=== PATIENT | female | born 1990 | race Caucasian/White ===

== ENCOUNTER 2017-01-30 17:04 | Outpatient (CLI) ==
[2016-10-22 17:58] VITALS: BMI 20.5
[2017-01-30 17:19] LABS: BILIRUBIN,URINE Negative (NEGATIVE); KETONES,URINE Negative (NEGATIVE); LEUKOCYTE ESTERASE ,URINE Trace (NEGATIVE); NITRITE,URINE Positive (NEGATIVE); PROTEIN,URINE Negative (NEGATIVE); URINE, BLOOD 2+ (NEGATIVE)
[2017-01-30 17:36] LABS: ADD URINE MICROSCOPIC YES
[2017-01-30 17:37] LABS: BACTERIA,URINE 2+ (NOT PRESENT)
== END 2017-01-30 17:05 | disposition home or self-care (01) ==
LOC: LAB 17:04
PROVIDERS: ATTEND Nurse Practitioner Family
DX: N39.0 Urinary tract infection, site not specified (principal)
CPT/HCPCS: 81001; 87086; 87186

== ENCOUNTER 2017-02-07 15:13 | Outpatient (CLI) ==
[2016-10-22 17:58] VITALS: BMI 20.5
[2017-02-07 16:14] LABS: BASOPHILS # (AUTO) 0.1 K/uL (0-0.2); BASOPHILS % (AUTO) 0.9 % (0.0-3.0); EOSINOPHILS # (AUTO) 0.3 K/ul (0.0-0.7); EOSINOPHILS % (AUTO) 4.1 % (0.0-7.0); HEMATOCRIT 40.3 % (37.0-47.0); HEMOGLOBIN 13.8 g/dl (12.0-16.0); IMMATURE GRANULOCYTE % (AUTO) 0.3 % (0.0-5.0); LYMPHOCYTES # (AUTO) 2.3 K/uL (0.60-3.4); LYMPHOCYTES % (AUTO) 33.8 (10.0-50.0); MEAN CORPUSCULAR HEMOGLOBIN 29.7 pg (27.0-31.0); MEAN CORPUSCULAR HGB CONC 34.2 (31.8-35.4); MEAN CORPUSCULAR VOLUME 86.7 fl (81.0-99.0); MONOCYTES # (AUTO) 0.4 K/uL (0.4-2.0); MONOCYTES % (AUTO) 5.6 (0-10); NEUTROPHILS # (AUTO) 3.8 K/ul (2.0-6.9); NEUTROPHILS % (AUTO) 55.3; PLATELET COUNT 264 10^3/uL (140-440); RED BLOOD COUNT 4.65 10^6/ul (4.20-5.40); WHITE BLOOD COUNT 6.81 K/ul (4.6-10.2)
[2017-02-07 16:29] LABS: BILIRUBIN,URINE Negative (NEGATIVE); KETONES,URINE Negative (NEGATIVE); LEUKOCYTE ESTERASE ,URINE Negative (NEGATIVE); NITRITE,URINE Negative (NEGATIVE); PH,URINE 5.5 (5-9); PROTEIN,URINE Negative (NEGATIVE); URINE, BLOOD Negative (NEGATIVE)
[2017-02-07 16:38] LABS: ADD URINE MICROSCOPIC NO
[2017-02-07 16:49] LABS: ALBUMIN/GLOBULIN RATIO 1.21; ANION GAP 12.9; BILIRUBIN,TOTAL 0.35 mg/dL (0.00-1.20); BUN/CREATININE RATIO 14.47; CHOL/HDL RATIO 2.8 (4.5-5.5); CREATININE 0.76 mg/dL (0.60-1.30); POTASSIUM 3.9 mmol/L (3.5-5.10); TOTAL PROTEIN 7.3 g/dL (6.4-8.2)
== END 2017-02-07 15:14 | disposition home or self-care (01) ==
LOC: LAB 15:13
PROVIDERS: ATTEND Nurse Practitioner Family
DX: G11.9 Hereditary ataxia, unspecified (principal); G89.4 Chronic pain syndrome; Z87.440 Personal history of urinary (tract) infections
CPT/HCPCS: 36415; 80053; 80061; 81001; 84439; 84443; 85025

== ENCOUNTER 2018-04-15 15:19 | Outpatient (CLI) ==
[2016-10-22 17:58] VITALS: BMI 20.5
== END 2018-04-15 15:20 | disposition home or self-care (01) ==
LOC: LAB 15:19
PROVIDERS: ATTEND Nurse Practitioner Family
DX: G89.4 Chronic pain syndrome (principal); Z79.899 Other long term (current) drug therapy
CPT/HCPCS: 36415; 80053; 80061; 81001; 85025

== ENCOUNTER 2018-07-19 11:15 | Emergency (ER) ==
[2018-07-19 11:19] VITALS: BP 123/84; TEMP 97; BMI 21.1
--- NOTE | 2018-07-19 12:02 | ED.PDOC ---
General ED Provider: Dr. MARKO KNUTSON Chief Complaint: Urinary Problem Stated Complaint: reports urine that is smelling and that she is not going enough Time Seen by Physician: 11:20 Mode of Arrival: Walk-In Information Source: Patient Exam Limitations: No limitations Primary Care Provider: [facility] Nursing and Triage Documentation Reviewed and Agree: Yes Does patient meet sepsis criteria?: No System Inflammatory Response Syndrome: Not Applicable Sepsis Protocol: For patient's 13 years and over: Temp is 96.8 and below OR 101 and greater Pulse >90 BPM Resp >20/minute Acutely Altered Mental Status Are patient's symptoms suggestive of a new infection, such as: -Pneumonia -Skin, Soft Tissue -Endocarditis -UTI -Bone, Joint Infection -Implantable Device -Acute Abdominal Infection -Wound Infection -Meningitis -Blood Stream Catheter Infection -Unknown Review of Systems - Review Of Systems Constitutional: Reports: No symptoms Eyes: Reports: No symptoms Ears, Nose, Mouth, Throat: Reports: No symptoms Respiratory: Reports: No symptoms Cardiac: Reports: No symptoms GI: Reports: No symptoms : Reports: Other (not urinating enough ) Musculoskeletal: Reports: No symptoms Skin: Reports: No symptoms Neurological: Reports: No symptoms Endocrine: Reports: No symptoms Hematologic/Lymphatic: Reports: No symptoms All Other Systems: Reviewed and Negative Past Medical History - Past Medical History Previously Healthy: Yes Endocrine: Reports: None Cardiovascular: Reports: None Respiratory: Reports: None Hematological: Reports: None Gastrointestinal: Reports: None, Other (C Diff ) Genitourinary: Reports: None 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, Other (Ataxia ) Musculoskeletal: Reports: None 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) Last Menstrual Period: 818 - Surgical History General Surgical History: Reports: Tubal ligation, - Family History Family History: Reports: Other (Ataxia) - Social History Smoking Status: Current every day smoker Hx Substance Use: No Alcohol Screening: None - Immunizations Tetanus Shot up to Date: Yes Physical Exam - Physical Exam Appearance: Well-appearing, No pain distress, Well-nourished Eyes: WILLIAM, EOMI, Conjunctiva clear ENT: Ears normal, Nose normal, Oropharynx normal Respiratory: Airway patent, Breath sounds clear, Breath sounds equal, Respirations nonlabored Cardiovascular: RRR, Pulses normal, No rub, No murmur GI/: Soft, Nontender, No masses, Bowel sounds normal, No Organomegaly Musculoskeletal: Normal strength, ROM intact, No edema, No calf tenderness Skin: Warm, Dry, Normal color Neurological: Sensation intact, Motor intact, Reflexes intact, Cranial nerves intact, Alert, Oriented Psychiatric: Affect appropriate, Mood appropriate Critical Care Note - Critical Care Note Total Time (mins): 0 Course - Course Orders, Labs, Meds: Lab Review 07/19/18 11:30 Urine Color Yellow Urine Clarity Clear Urine pH 5.5 Ur Specific [place] 1.025 Urine Protein Negative Urine Glucose (UA) Negative Urine Ketones Negative Urine Blood Trace-lysed Urine Nitrite Negative Urine Bilirubin Negative Urine Urobilinogen 0.2 Ur Leukocyte Esterase 1+ Urine Microscopic RBC 0-2 Urine Microscopic WBC 20-30 Ur Squamous Epith Cells 5-10 Urine Bacteria 2+ Urine Mucus 3+ Orders Category Date Time Status URINALYSIS C & S IF INDICATED Stat LAB 07/19/18 11:30 Completed URINE CULTURE Stat LAB 07/19/18 11:30 Received Vital Signs: Temp Pulse Resp BP Pulse Ox 07/19/18 11:16 97.0 F L 90 18 123/84 99 Departure - Departure Time of Disposition: 12:01 Disposition: HOME SELF-CARE Discharge Problem: Urinary tract infectious disease Instructions: Urinary Tract Infection in Women (ED) Condition: Stable Pt referred to PMD for follow-up: Yes IPMP verified?: No Additional Instructions: Take Medications as prescribed Push fluids Follow up with PCP in 3 days Prescriptions: Sulfamethoxazole/Trimethoprim [Bactrim Ds 800/160 mg] 1 tab PO Q12HR #10 tablet Allergies/Adverse Reactions: Allergies acetaminophen [From [place]] Allergy (Unknown, Unverified 08/15/17 15:30) hydrocodone bitartrate [From [place]] Allergy (Unknown, Unverified 08/15/17 15:30) morphine Adverse Reaction (Unverified 08/15/17 15:30) Home Medications: Ambulatory Orders Lorazepam [Ativan] 1 mg PO QID 10/24/15 Ibuprofen 200 mg PO PRN 02/07/18 Sulfamethoxazole/Trimethoprim [Bactrim Ds 800/160 mg] 1 tab PO Q12HR #10 tablet 07/19/18 Disposition Discussed With: Patient
== END 2018-07-19 12:11 | disposition home or self-care (01) ==
LOC: ED 11:15
DX: N39.0 Urinary tract infection, site not specified (principal); F17.210 Nicotine dependence, cigarettes, uncomplicated
CPT/HCPCS: 81001; 87086; 87186; 99283

== ENCOUNTER 2018-07-23 08:29 | Emergency (ER) ==
[2018-07-23 08:39] VITALS: BP 147/91; TEMP 97.7; BMI 20.6
[2018-07-23] MEDS ORDERED: TORADOL IM STA (08:45)
[2018-07-23] MEDS ORDERED: OXYCODONE PO STA (08:48)
--- NOTE | 2018-07-23 09:29 | ED.PDOC ---
General ED Provider: Dr. MICAH SALES Chief Complaint: Chest Wall Injury/Pain Stated Complaint: chest wall injury fall Time Seen by Physician: 08:33 (fall chest wall pain upper back pain sen with SARIKA THOMAS RN) Mode of Arrival: Walk-In Information Source: Patient Exam Limitations: No limitations [facility] Nursing and Triage Documentation Reviewed and Agree: Yes Does patient meet sepsis criteria?: No System Inflammatory Response Syndrome: Not Applicable (NO NECK PAIN) Sepsis Protocol: For patient's 13 years and over: Temp is 96.8 and below OR 101 and greater Pulse >90 BPM Resp >20/minute Acutely Altered Mental Status Are patient's symptoms suggestive of a new infection, such as: -Pneumonia -Skin, Soft Tissue -Endocarditis -UTI -Bone, Joint Infection -Implantable Device -Acute Abdominal Infection -Wound Infection -Meningitis -Blood Stream Catheter Infection -Unknown Trauma/Injury Complaint Exam - Trauma Complaint/Exam Location of Pain or Injury: Reports: Chest, Back (THORACIC). Denies: Head, Scalp, Face, Neck, RUE, LUE, Abdomen, RLE, LLE Mechanism of Injury: Reports: Fall Onset/Duration: 1 HR AGO Symptoms Are: Still present Timing of Treatment: Immediate Initial Severity: Moderate Current Severity: Moderate Character: Reports: Aching Aggravating: Reports: Movement Alleviating: Reports: Rest Associated Signs and Symptoms: Denies: LOC, Confusion, Memory loss, Lethargy, Vomiting, Bleeding, Bruising, Swelling, Extremity disuse, Painful respiration, Hoarseness, Dysphagia, Hemoptysis, Significant blood loss : No Penetrating Injury Risk Factors: Reports: None Related Surgical History: Reports: None Nexus Low Risk Criteria: No post-midline CS tender, No evidence of intoxicat., No Altered LOC, No focal neuro deficit, No distracting injuries Immobilization Removed Post Exam: No Glascow Coma Scale (see protocol): 15 Trauma Findings: Absent: [place] eyes, Hemotympanum, Nasal deformity, Dental tenderness, Dental injury, Neck tenderness, Neck spasm, SubQ Air, Weak pulses, Absent pulses, Abdominal distention Skin Findings: Present: Normal findings Differential Diagnoses: Abrasion (LOWER CHEST RIGHT) Review of Systems - Review Of Systems Constitutional: Reports: No symptoms Eyes: Reports: No symptoms Ears, Nose, Mouth, Throat: Reports: No symptoms Respiratory: Reports: No symptoms Cardiac: Reports: No symptoms GI: Reports: No symptoms : Reports: No symptoms Musculoskeletal: Reports: No symptoms Skin: Reports: No symptoms Neurological: Reports: No symptoms Endocrine: Reports: No symptoms Hematologic/Lymphatic: Reports: No symptoms All Other Systems: Reviewed and Negative Past Medical History - Past Medical History Previously Healthy: Yes Endocrine: Reports: None Cardiovascular: Reports: None Respiratory: Reports: None Hematological: Reports: None Gastrointestinal: Reports: None, Other (C Diff ) Genitourinary: Reports: None 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, Other (Ataxia ) Musculoskeletal: Reports: None 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) Last Menstrual Period: 1 week ago - Surgical History General Surgical History: Reports: Tubal ligation, - Family History Family History: Reports: Other (Ataxia) - Social History Smoking Status: Current every day smoker, Heavy tobacco smoker Hx Substance Use: No Alcohol Screening: None Physical Exam - Physical Exam Appearance: Well-appearing, No pain distress, Well-nourished Eyes: WILLIAM, EOMI, Conjunctiva clear ENT: Ears normal, Nose normal, Oropharynx normal Respiratory: Airway patent, Breath sounds clear, Breath sounds equal, Respirations nonlabored Cardiovascular: RRR, Pulses normal, No rub, No murmur GI/: Soft, Nontender, No masses, Bowel sounds normal, No Organomegaly Musculoskeletal: Normal strength, ROM intact, No edema, No calf tenderness Skin: Warm, Dry (ABRASION RIGHT LOWER CHEST WALL) Neurological: Sensation intact, Motor intact, Reflexes intact, Cranial nerves intact, Alert, Oriented Psychiatric: Affect appropriate, Mood appropriate Interpretation - Radiology Interpretation Radiology Interpretation By: Radiologist Radiology Results: No acute changes Critical Care Note - Critical Care Note Total Time (mins): 0 Course - Course Orders, Labs, Meds: Lab Review 07/23/18 08:55 Serum , Qual Negative Orders Category Date Time Status SERUM Stat LAB 07/23/18 08:55 Completed Ketorolac Tromethamine [Toradol] MEDS 07/23/18 08:45 Discontinued 30 mg IM ONCE STA Oxycodone HCl [Oxycodone] MEDS 07/23/18 08:48 Discontinued 5 mg PO ONCE STA CT CHEST W/O CONTRAST Stat RADS 07/23/18 08:[address] THORACIC SPINE W/O CONTRAST Stat RADS 07/23/18 08:43 Completed Medications Discontinued Medications Generic Name Dose Route Start Last Admin Trade Name Fatemeh PRN Reason Stop Dose Admin Ketorolac Tromethamine 30 mg 07/23/18 08:45 07/23/18 10:30 Toradol IM 07/23/18 08:46 Not Given ONCE STA Oxycodone HCl 5 mg 07/23/18 08:48 07/23/18 09:04 Oxycodone PO 07/23/18 08:49 5 mg ONCE STA Administration Vital Signs: Temp Pulse Resp BP Pulse Ox 07/23/18 08:30 97.7 F 91 H 20 147/91 H 99 Departure - Departure Time of Disposition: 10:00 Disposition: HOME SELF-CARE Discharge Problem: Chest injury Instructions: Chest Wall Pain (ED) Condition: Good Pt referred to PMD for follow-up: Yes IPMP verified?: No Additional Instructions: take pain med from home as instructed-rest at home-make appointment with family md as soon as possible regarding chest cat scan findings Allergies/Adverse Reactions: Allergies hydrocodone bitartrate [From [place]] Allergy (Unknown, Verified 07/23/18 08:39) morphine Adverse Reaction (Verified 07/23/18 08:39) Home Medications: Ambulatory Orders Lorazepam [Ativan] 1 mg PO QID 10/24/15 Ibuprofen 200 mg PO DIRECTED PRN 02/07/18 Sulfamethoxazole/Trimethoprim [Bactrim Ds 800/160 mg] 1 tab PO Q12HR #10 tablet 07/19/18
--- NOTE | 2018-07-23 10:16 | CT ---
EXAM: CT chest without contrast. HISTORY: Right lower rib pain following a fall. Initial presentation. COMPARISON: None available. TECHNIQUE: Multiple axial images of the chest were obtained without intravenous contrast. Images we re reformatted in the sagittal and coronal planes. Three-dimensional reconstructed images were create d on an independent workstation FINDINGS: Evaluation for lymphadenopathy is limited by lack of intravenous contrast. Heart size is normal. No pericardial effusion identified. Normal thymic tissue is present. A 0.3 cm right middle lobe nodule noted on axial image 36 is stable since abdominal CT dated 09/17/20 12. Otherwise, the lungs are clear without pleural effusion or pneumothorax. Polypoid 0.3 cm focus within the right bronchus intermedius on axial image 27 with more linear focus in the anterior lower trachea on axial image 19 noted. Limited images of the upper abdomen are unremarkable. No rib fracture or other acute osseous abnorma lity is identified. IMPRESSION: 1. No acute post-traumatic abnormality of the chest. 2. A 0.3 cm polypoid lesion in the right bronchus intermedius may represent mucus although short-ter m follow-up is recommended to confirm resolution.
--- NOTE | 2018-07-23 10:18 | CT ---
EXAM: CT thoracic spine without contrast. HISTORY: Initial presentation for back injury due to a fall. COMPARISON: None available. TECHNIQUE: Multiple axial images of the thoracic spine were obtained without intravenous contrast. Images were reformatted in the sagittal and coronal planes. FINDINGS: The normal curvature and alignment are maintained. Vertebral body and intervertebral disc heights are normal. No fracture or subluxation is seen. No significant central canal stenosis iden tified. Adjacent soft tissues are unremarkable. A 0.3 cm polypoid lesion noted in the right bronchus intermedius on coronal image 27. There appears to be some more linear mucus in the trachea making t his most likely mucus although polypoid mass not excluded. IMPRESSION: 1. No acute abnormality of the thoracic spine. 2. A 0.3 cm polypoid focus in the right bronchus intermedius which is most likely mucus although fol low-up is recommended to confirm resolution.
== END 2018-07-23 10:45 | disposition home or self-care (01) ==
LOC: ED 08:29
DX: S29.9XXA Unspecified injury of thorax, initial encounter (principal); S20.311A Abrasion of right front wall of thorax, initial encounter; W19.XXXA Unspecified fall, initial encounter; F17.210 Nicotine dependence, cigarettes, uncomplicated
CPT/HCPCS: 36415; 84703; 99283

== ENCOUNTER 2018-09-05 11:53 | Outpatient (CLI) | END 2018-09-05 11:54 | disposition home or self-care (01) | LOC: FCC-LAB 11:53 | PROVIDERS: ATTEND Family Medicine | DX: E55.9 Vitamin D deficiency, unspecified (principal) | CPT/HCPCS: 36415; 82306 ==

== ENCOUNTER 2018-10-10 12:39 | Outpatient (CLI) | END 2018-10-10 12:40 | disposition home or self-care (01) | LOC: FCC-LAB 12:39 | PROVIDERS: ATTEND Family Medicine | DX: R40.0 Somnolence (principal); R26.9 Unspecified abnormalities of gait and mobility; G11.9 Hereditary ataxia, unspecified; R91.1 Solitary pulmonary nodule | CPT/HCPCS: 36415; 82565; 84443; 85025 ==

== ENCOUNTER 2019-02-03 16:43 | Outpatient (CLI) | END 2019-02-03 16:44 | disposition home or self-care (01) | LOC: RHC-LAB 16:43 → FCC-LAB 16:44 | PROVIDERS: ATTEND Family Medicine | DX: Z51.81 Encounter for therapeutic drug level monitoring (principal); Z79.899 Other long term (current) drug therapy | CPT/HCPCS: 80306 ==

== ENCOUNTER 2019-03-03 09:50 | Emergency (ER) ==
[2019-03-03 09:50] VITALS: BMI 20.6
[2019-03-03 09:58] VITALS: BP 136/86; TEMP 98.8
--- NOTE | 2019-03-03 10:48 | ED.PDOC ---
General ED Provider: Dr. PAULINE VICENTE Chief Complaint: Nausea/Vomiting Stated Complaint: 3 days now,weak nausea,abdominal discoforet,No diarrhea and afebrilke,Throat apeares negative. Time Seen by Physician: 09:55 Mode of Arrival: Walk-In Information Source: Patient Exam Limitations: No limitations Primary Care Provider: MARYLIN CORDERO Nursing and Triage Documentation Reviewed and Agree: Yes Does patient meet sepsis criteria?: No System Inflammatory Response Syndrome: Not Applicable Sepsis Protocol: For patient's 13 years and over: Temp is 96.8 and below OR 101 and greater Pulse >90 BPM Resp >20/minute Acutely Altered Mental Status Are patient's symptoms suggestive of a new infection, such as: -Pneumonia -Skin, Soft Tissue -Endocarditis -UTI -Bone, Joint Infection -Implantable Device -Acute Abdominal Infection -Wound Infection -Meningitis -Blood Stream Catheter Infection -Unknown GI Complaint Exam - Abdominal Pain Complaint/Exam Duration: 3 days Symptoms Are: Still present Timing: Constant Initial Severity: Moderate Current Severity: Mild Location of Pain: Diffuse Character: Reports: Unable to describe Aggravating: Reports: None Alleviating: Reports: Rest Associated Signs and Symptoms: Reports: Nausea AAA Risk Factors: Reports: None Cardiac Risk Factors: Reports: None Ectopic Risk Factors: Reports: None Surgical Obstruction Risk Factors: Reports: None Related Surgical History: Reports: None Abdominal Findings: Present: Other Review of Systems - Review Of Systems Constitutional: Reports: Malaise, Weakness Eyes: Reports: No symptoms Ears, Nose, Mouth, Throat: Reports: No symptoms Respiratory: Reports: Other Cardiac: Reports: No symptoms GI: Reports: Nausea : Reports: No symptoms Musculoskeletal: Reports: No symptoms Skin: Reports: No symptoms Neurological: Reports: No symptoms Endocrine: Reports: No symptoms Hematologic/Lymphatic: Reports: No symptoms All Other Systems: Reviewed and Negative Past Medical History - Past Medical History Previously Healthy: Yes Endocrine: Reports: None Cardiovascular: Reports: None Respiratory: Reports: None Hematological: Reports: None Gastrointestinal: Reports: None, Other (C Diff ) Genitourinary: Reports: None 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, Other (Ataxia ) Musculoskeletal: Reports: None 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) Last Menstrual Period: february 19 - Surgical History General Surgical History: Reports: Tubal ligation, - Family History Family History: Reports: Other (Ataxia) - Social History Smoking Status: Current every day smoker, Heavy tobacco smoker Hx Substance Use: No Alcohol Screening: None Physical Exam - Physical Exam Appearance: No pain distress Ill-appearing: Mild Pain Distress: None Eyes: WILLIAM ENT: Ears normal Neck: Supple Respiratory: Airway patent, Crackles Musculoskeletal: Normal strength Skin: Warm Neurological: Sensation intact Psychiatric: Affect appropriate Critical Care Note - Critical Care Note Total Time (mins): 0 Course - Course Hematology/Chemistry: 03/03/19 11:07 03/03/19 11:07 Orders, Labs, Meds: Lab Review 03/03/19 03/03/19 03/03/19 11:05 11:05 11:07 WBC 7.06 RBC 4.41 Hgb 13.5 Hct 39.7 MCV 90.0 MCH 30.6 MCHC 34.0 RDW Coeff of [place] 12.5 Plt Count 205 Immature Gran % (Auto) 0.3 Neut % (Auto) 68.4 Lymph % (Auto) 22.8 [place] % (Auto) 5.1 Eos % (Auto) 2.7 Baso % (Auto) 0.7 Immature Gran # (Auto) 0.0 Neut # (Auto) 4.8 Lymph # (Auto) 1.6 [place] # (Auto) 0.4 Eos # (Auto) 0.2 Baso # (Auto) 0.1 Sodium Potassium Chloride Carbon Dioxide Anion Gap BUN Creatinine Estimated GFR (MDRD) BUN/Creatinine Ratio Glucose Calcium Total Bilirubin AST ALT Alkaline Phosphatase Total Protein Albumin Globulin Albumin/Globulin Ratio Amylase Lipase Urine Color Yellow Urine Clarity Clear Urine pH 8.5 Ur Specific [place] 1.020 Urine Protein Negative Urine Glucose (UA) Negative Urine Ketones Negative Urine Blood Negative Urine Nitrite Negative Urine Bilirubin Negative Urine Urobilinogen 0.2 Ur Leukocyte Esterase Negative Urine Test Negative Influ A Molecular Assay Influ B Molecular Assay 03/03/19 03/03/19 11:07 11:30 WBC RBC Hgb Hct MCV MCH MCHC RDW Coeff of [place] Plt Count Immature Gran % (Auto) Neut % (Auto) Lymph % (Auto) [place] % (Auto) Eos % (Auto) Baso % (Auto) Immature Gran # (Auto) Neut # (Auto) Lymph # (Auto) [place] # (Auto) Eos # (Auto) Baso # (Auto) Sodium 138.1 Potassium 4.49 Chloride 104.2 Carbon Dioxide 27.0 Anion Gap 11.39 BUN 10.6 Creatinine 0.62 Estimated GFR (MDRD) 113.00 BUN/Creatinine Ratio 17.09 Glucose 112.4 H Calcium 9.51 Total Bilirubin 0.37 AST 18.4 ALT 14.8 Alkaline Phosphatase 54.0 Total Protein 7.00 Albumin 4.76 Globulin 2.24 Albumin/Globulin Ratio 2.12 Amylase 73.5 Lipase 88.9 Urine Color Urine Clarity Urine pH Ur Specific [place] Urine Protein Urine Glucose (UA) Urine Ketones Urine Blood Urine Nitrite Urine Bilirubin Urine Urobilinogen Ur Leukocyte Esterase Urine Test Influ A Molecular Assay Negative by naat Influ B Molecular Assay Negative by naat Orders Category Date Time Status IV [ED IV/MEDIPORT/POWERPORT] .ONCE EMERGENCY 03/03/19 11:01 Active AMYLASE Stat LAB 03/03/19 11:07 Completed CBC W/ AUTO DIFF Stat LAB 03/03/19 11:07 Completed CMP [COMPREHENSIVE METABOLIC PANEL] Stat LAB 03/03/19 11:07 Completed FLU A/B MOLECULAR Stat LAB 03/03/19 11:30 Completed LIPASE Stat LAB 03/03/19 11:07 Completed MOLECULAR GROUP A STREP Stat LAB 03/03/19 11:30 Completed TEST URINE [URINE ] Stat LAB 03/03/19 11:05 Completed URINALYSIS WITH MICROSCOPIC Stat LAB 03/03/19 11:05 Completed 0.9 % Sodium Chloride [Saline Flush] MEDS 03/03/19 11:01 Active 1 syr IVF PRN PRN Sodium Chloride 0.9% [Sodium Chloride] 1,000 ml MEDS 03/03/19 11:02 Discontinued IV BOLUS CHEST, 2 VIEWS PA & LAT Stat RADS 03/03/19 10:[address] ABDOMEN/PELVIS WO CONTRAST Stat RADS 03/03/19 10:57 Completed Medications Generic Name Dose Route Start Last Admin Trade Name Freq PRN Reason Stop Dose Admin Sodium Chloride 1 syr 03/03/19 11:01 03/03/19 11:25 Saline Flush IVF 1 syr PRN PRN Administration To flush IV Discontinued Medications Generic Name Dose Route Start Last Admin Trade Name Freq PRN Reason Stop Dose Admin Sodium Chloride 1,000 mls @ 1,000 mls/hr 03/03/19 11:02 03/03/19 11:25 Sodium Chloride IV 03/03/19 12:01 1,000 mls/hr BOLUS STA Administration Vital Signs: Temp Pulse Resp BP Pulse Ox 03/03/19 09:50 98.8 F 91 H 20 136/86 98 Departure - Departure Time of Disposition: 12:52 Disposition: HOME SELF-CARE Discharge Problem: Ataxia Instructions: Tremors (ED) Condition: Good Pt referred to PMD for follow-up: Yes IPMP verified?: No Additional Instructions: Zofran tab a 4mg 1 tab q 4=-6 hours prn [place] Allergies/Adverse Reactions: Allergies hydrocodone bitartrate [From [place]] Allergy (Unknown, Verified 03/03/19 09:57) duloxetine HCl [From [place]] Allergy (Verified 03/03/19 09:57) emotional morphine Adverse Reaction (Verified 03/03/19 09:57) Home Medications: Ambulatory Orders Ibuprofen 200 mg PO DIRECTED PRN 02/07/18 Disposition Discussed With: Patient
[2019-03-03] MEDS ORDERED: SODIUM CHLORIDE 1,000 ML IV STA (11:02)
[2019-03-03 11:36] LABS: URINE PREGNANCY TEST NEGATIVE (NEGATIVE)
--- NOTE | 2019-03-03 12:23 | CT ---
EXAM: CT abdomen pelvis without contrast HISTORY: Weak, nausea COMPARISON: 10/22/2016 TECHNIQUE: CT abdomen pelvis performed without intravenous contrast. Coronal and sagittal reformatt ed images obtained. FINDINGS: Long bases clear. No free air. No acute abnormalities of the bones. The heart normal in size. Evaluation organ parenchyma limited without contrast. Liver unremarkable. Gallbladder unrem arkable. Pancreas unremarkable. Spleen unremarkable. Adrenals unremarkable. No hydronephrosis or nephrolithiasis. Bilateral extrarenal pelvis. Bladder unremarkable. Aorta normal in caliber. No l ymphadenopathy or ascites. Uterus unremarkable. Stomach unremarkable. No dilated loops small bowel . Appendix appears normal. Majority of colon decompressed and poorly evaluated. No inflammatory st randing identified in the abdomen pelvis. IMPRESSION: No acute abnormality identified in the abdomen or pelvis.
--- NOTE | 2019-03-03 12:27 | DI ---
EXAM: CHEST FRONTAL AND LATERAL VIEWS HISTORY: Weakness. COMPARISON: None FINDINGS: Heart size and mediastinal contour within normal limits. Lungs are hyperinflated. No acute infiltrates are seen. No vascular congestion. There is no consolidation, visible pleural flui d or pneumothorax. Bones reveal no acute fracture. IMPRESSION: No acute cardiopulmonary process.
== END 2019-03-03 13:09 | disposition home or self-care (01) ==
LOC: ED 09:50
DX: R27.0 Ataxia, unspecified (principal); R11.2 Nausea with vomiting, unspecified; R53.1 Weakness; R10.9 Unspecified abdominal pain; F17.210 Nicotine dependence, cigarettes, uncomplicated
CPT/HCPCS: 36415; 80053; 81001; 81025; 82150; 83690; 85025; 87502; 87651; 96360; 99283

== ENCOUNTER 2019-04-26 14:34 | Emergency (ER) ==
[2019-04-26 14:38] VITALS: BP 146/86; TEMP 98.9; BMI 20.8
--- NOTE | 2019-04-26 15:05 | ED.PDOC ---
General ED Provider: Dr. MICAH SALES Chief Complaint: Urinary Problem Stated Complaint: dysuria Time Seen by Physician: 14:45 Mode of Arrival: Walk-In Information Source: Patient Exam Limitations: No limitations Primary Care Provider: MARYLIN CORDERO Nursing and Triage Documentation Reviewed and Agree: Yes Does patient meet sepsis criteria?: No System Inflammatory Response Syndrome: Not Applicable Sepsis Protocol: For patient's 13 years and over: Temp is 96.8 and below OR 101 and greater Pulse >90 BPM Resp >20/minute Acutely Altered Mental Status Are patient's symptoms suggestive of a new infection, such as: -Pneumonia -Skin, Soft Tissue -Endocarditis -UTI -Bone, Joint Infection -Implantable Device -Acute Abdominal Infection -Wound Infection -Meningitis -Blood Stream Catheter Infection -Unknown Complaint Exam - Complaint/Exam Patient Complains of: Reports: Dysuria Onset/Duration: 1 day Symptoms Are: Still present Initial Severity: Mild Current Severity: Mild Location of Pain: Reports: None Aggravating: Reports: None Alleviating: Reports: None Associated Signs and Symptoms: Reports: Dysuria. Denies: Diaphoresis, Back pain , Fever, Hematuria, Constipation, Blood in stool, Rectal pain, Appetite change, Nausea, Vomiting, Decreased urine output, Increased urine frequency, Increased thirst, Decreased activity, Lethargy, Abdominal Pain, Bubble bath use, Vaginal bleeding, Vaginal discharge, Genital swelling, Genital blisters, Retained foreign body Ovarian Torsion Risk Factors: Reports: None Surgical Obstruction Risk Factors: Reports: None RH Status: Unknown Related Surgical History: Reports: None Abdominal Findings: Present: None Differential Diagnoses: UTI Review of Systems - Review Of Systems Constitutional: Reports: No symptoms Eyes: Reports: No symptoms Ears, Nose, Mouth, Throat: Reports: No symptoms Respiratory: Reports: No symptoms Cardiac: Reports: No symptoms GI: Reports: No symptoms : Reports: Dysuria Musculoskeletal: Reports: No symptoms Skin: Reports: No symptoms Neurological: Reports: No symptoms Endocrine: Reports: No symptoms Hematologic/Lymphatic: Reports: No symptoms All Other Systems: Reviewed and Negative Past Medical History - Past Medical History Previously Healthy: Yes Endocrine: Reports: None Cardiovascular: Reports: None Respiratory: Reports: None Hematological: Reports: None Gastrointestinal: Reports: None, Other (C Diff ) Genitourinary: Reports: None 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, Other (Ataxia ) Musculoskeletal: Reports: None 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) Last Menstrual Period: last month - Surgical History General Surgical History: Reports: Tubal ligation, - Family History Family History: Reports: Other (Ataxia) - Social History Smoking Status: Current every day smoker, Heavy tobacco smoker Hx Substance Use: No Alcohol Screening: None Physical Exam - Physical Exam Appearance: Well-appearing, No pain distress, Well-nourished Eyes: WILLIAM, EOMI, Conjunctiva clear ENT: Ears normal, Nose normal, Oropharynx normal Respiratory: Airway patent, Breath sounds clear, Breath sounds equal, Respirations nonlabored Cardiovascular: RRR, Pulses normal, No rub, No murmur GI/: Soft, Nontender, No masses, Bowel sounds normal, No Organomegaly Musculoskeletal: Normal strength, ROM intact, No edema, No calf tenderness Skin: Warm, Dry, Normal color Neurological: Sensation intact, Motor intact, Reflexes intact, Cranial nerves intact, Alert, Oriented Psychiatric: Affect appropriate, Mood appropriate Critical Care Note - Critical Care Note Total Time (mins): 0 Course - Course Vital Signs: Temp Pulse Resp BP Pulse Ox 04/26/19 14:35 98.9 F 95 H 16 146/86 H 98 Departure - Departure Time of Disposition: 15:04 Disposition: HOME SELF-CARE Discharge Problem: Urinary symptoms, Urinary tract infectious disease Instructions: Urinary Tract Infection in Women (ED) Condition: Good Pt referred to PMD for follow-up: Yes IPMP verified?: No Additional Instructions: Please call your Family Physician as soon as possible to schedule a follow-up appointment. Allergies/Adverse Reactions: Allergies hydrocodone bitartrate [From [place]] Allergy (Unknown, Verified 04/26/19 14:38) duloxetine HCl [From Cymbalta] Allergy (Verified 04/26/19 14:38) emotional morphine Adverse Reaction (Verified 04/26/19 14:38) Home Medications: Ambulatory Orders Bupropion HCl [Wellbutrin] 100 mg PO DAILY 04/26/19 Disposition Discussed With: Patient
== END 2019-04-26 15:29 | disposition home or self-care (01) ==
LOC: ED 14:34
DX: N39.0 Urinary tract infection, site not specified (principal); F17.210 Nicotine dependence, cigarettes, uncomplicated
CPT/HCPCS: 81001; 87086; 87186; 99283

== ENCOUNTER 2019-07-31 08:15 | Outpatient (RCR) ==
--- NOTE | 2019-07-07 16:38 | RS.OPPTDN ---
Subjective Date of Note: 07/07/19 Visit #: 3 Number of visits approved by Insurance: pending Date of Evaluation: 06/29/19 Payer Source: Medicaid Treatment Diagnosis: frequent falls, spinocerebellar ataxia type 3, gait abnormality Current Subjective/complaints:: Patient says she has received her disability today and is very pleased, but says she is still going to work ~20 hours a week to help keep her "moving" and support mental health through socialization. 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 States her R arm is much better than last week since her fall. She says pain is completely gone with the exception of R IR while trying to fasten her bra, but admits as soon as she moves out of this position, pain is gone. States she takes 1 percocet per day for her LEs. *Precautions: fall precautions Interventions - Exercise/Activities/Manual Therapy Exercises/Activities: Assisted stretching of bilateral hamstring, piriformis, ITB, and LTR. Hooklying: Ball squeezes for Isometric hip add, resisted hip abd with yellow tband, lower trunk rotation with yellow tband, single leg hip flexion with yellow tband, isometric hip flexion, SLR, QS, alt hip flexion 1# each leg, SAQ 1# DF with yellow tband, lower ab crunch x 10. Standing: holding onto 1 rail, alternate step up on stool to hit target CGA x 10. Side stepping bilateral ANGIOGRAPHY NURSE on rail, marching, all x 10. bilateral wall slides ( facing wall) and wall push ups x 5. NEURO Side-stepping, cross walking, toe-ups , marching, and unilateral standing, all performed at handrail. Discussion of safety and home needs. Total minutes of Exercise: 48 Manual Therapy: NA HOME EXERCISE PROGRAM: pt given written HEP including: hamstring stretch, piriformis stretch, isometric hip add, resisted hip abd. - Charges Timed Code Treatment Minutes: 48 Total Treatment Time: 48 Procedures billed for this date of service:: neuro 1, ex2 Assessment: Patient presents amb with rollator using brakes intermittently to slow gait. She is very motivated to continue strengthening to the trunk and work on bal activities to assist her with ADLs and work duties. 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 She is able to fold rollator and place into her SUV SBA/CGA, but admits she does this routinely without difficulty. She demo mild mm fatigue the latter portion of session and particularly with SLR. She should benefit from further progression of therex BIW. Patient Education: Home Exercise Program, Home Safety, Education of Plan of Care Patient demonstrates compliance with HEP?: Yes Short Term Goals Goal #1: pt independent with intial HEP Goal to be met by: 07/17/19 Progress towards Goal:: Progressing Goal #2: Improve dyn stand balance as noted by tinetti score of Goal to be met by: 07/17/19 Goal #3: Improve BLE strength 4/5 Goal to be met by: 07/17/19 Goal #4: Improve gait speed with rollator 0.7m/s Goal to be met by: 07/17/19 Correction Goals Goal #1: pt able to perform normal daily activities without falls, w less pain B hip Goal to be met by: 07/31/19 Goal #2: Improve tinetti score consistent with mod risk of falls Goal to be met by: 07/31/19 Goal #3: Pt to ambulate household & community distances w/o falls Goal to be met by: 07/31/19 Goal #4: Improve gait speed > 0.8 meters/sec consistent with community ambulator Goal to be met by: 07/31/19 Plan Dates of Cardiothoracic Anesthesia Technician Goals: 07/31/19 Expiration date of current Insurance Approval:: 07/31/19 PLAN: Continue BIW
--- NOTE | 2019-07-10 16:23 | RS.OPPTDN ---
Subjective Date of Note: 07/10/19 Visit #: 4 Number of visits approved by Insurance: pending Date of Evaluation: 06/29/19 Payer Source: Medicaid Treatment Diagnosis: frequent falls, spinocerebellar ataxia type 3, gait abnormality Current Subjective/complaints:: Patient says that she is hurting in her low back and L SI joint and asks if we could just perform stretching and table exercises. Reports she has had a busy day with work and appts. States she gains relief through assisted stretching and does not want to go backwards on her progress due to her pain however. *Precautions: fall precautions - Heat/Cryotherapy Treatment: Hot Pack (to mid to low back and bilateral SI joints in supine x10 mins, but also leaving on during stretching) Interventions - Exercise/Activities/Manual Therapy Exercises/Activities: Assisted stretching of bilateral hamstring, piriformis, figure 4, heel cords, and LTR. Hooklying: Ball squeezes for Isometric hip add , resisted hip abd with yellow tband, lower trunk rotation with yellow tband, rhythmic stabilization for trunk in supine x 5, single leg hip flexion with yellow tband, bridging (2x5), SLR (2x5), isometric hip flexion, QS, SAQ 1# DF with yellow tband, x 15. Assisted pt to her car using rollator. Total minutes of Exercise: 33 Manual Therapy: NA HOME EXERCISE PROGRAM: pt given written HEP including: hamstring stretch, piriformis stretch, isometric hip add, resisted hip abd. - Charges Timed Code Treatment Minutes: 33 Total Treatment Time: 49 Procedures billed for this date of service:: hp, ex2 Assessment: Patient presents amb with rollator to our dept. She admits pain to the low back and both SI joints, but primarily to the L. She requests no standing therex as she does not want to elevate this pain. She is able to carlos all stretching well and admits relief through heat and stability therex. Will progress therex as able next session and may benefit from moist heat during therex. Patient Education: Home Exercise Program, Home Safety Patient demonstrates compliance with HEP?: Yes Short Term Goals Goal #1: pt independent with intial HEP Goal to be met by: 07/17/19 Progress towards Goal:: Progressing Goal #2: Improve dyn stand balance as noted by tinetti score of Goal to be met by: 07/17/19 Goal #3: Improve BLE strength 4/5 Goal to be met by: 07/17/19 Goal #4: Improve gait speed with rollator 0.7m/s Goal to be met by: 07/17/19 Silverware Washer Goals Goal #1: pt able to perform normal daily activities without falls, w less pain B hip Goal to be met by: 07/31/19 Goal #2: Improve tinetti score consistent with mod risk of falls Goal to be met by: 07/31/19 Goal #3: Pt to ambulate household & community distances w/o falls Goal to be met by: 07/31/19 Goal #4: Improve gait speed > 0.8 meters/sec consistent with community ambulator Goal to be met by: 07/31/19 Plan Dates of Penitentiary Goals: 07/31/19 Expiration date of current Insurance Approval:: 07/31/19 PLAN: Patient to continue BIW for gait, bal, and strengthening.
--- NOTE | 2019-07-15 15:05 | RS.CXNS ---
Date of scheduled appointment: 07/15/19 Type: Cancel Reason for Cancel/NS: Picking child up from school and will be late. MOTION PICTURE CAMERAMAN verified to come on in to therapy, but later calls back and says she is still in line to hot die picker child. She says she will be attending Saturday for treatment.
--- NOTE | 2019-07-17 10:59 | RS.OPPTDN ---
Subjective Date of Note: 07/17/19 Visit #: 5 Number of visits approved by Insurance: 8, pending Date of Evaluation: 06/29/19 Payer Source: Medicaid Treatment Diagnosis: frequent falls, spinocerebellar ataxia type 3, gait abnormality Current Subjective/complaints:: Patient reports she has fallen again yesterday stating she started to stand up from her patio chair and stumbled into a outside table. She shows me large bruise to the L lateral thigh and then small scrape to the R lateral ankle. States she is falling daily, but mostly when she is beginning to stand up. States she does not fall very much while having her rollator. *Precautions: fall precautions - Heat/Cryotherapy Treatment: Hot Pack (mid to low back and hips in supine) Interventions - Exercise/Activities/Manual Therapy Exercises/Activities: Assisted stretching of bilateral hamstring, piriformis, figure 4, heel cords, and LTR x 4. Hooklying: Ball squeezes for Isometric hip add, resisted hip abd with red tband, lower trunk rotation with yellow tband , rhythmic stabilization for trunk in supine x 5, alternate LE lift with 1 1/2# ea LE, bridging (2x5), SLR (2x5), 4 point SLR x 5, isometric hip flexion, QS , SAQ 1 1/2# DF with red tband, x 15. Sitting EOB: 2# wand for bilateral shoulder flexion just about 100 degrees x 10 reps, red tband for bilateral shoulder abd x 10, red tband for scap retraction, seated instruction and demo chun tband forward abdominal crunch x 10. Patient assisted to her car via rollator CGA/SBA. Total minutes of Exercise: 39 Manual Therapy: NA HOME EXERCISE PROGRAM: pt given written HEP including: hamstring stretch, piriformis stretch, isometric hip add, resisted hip abd. Bridging and chun tband tie to chair at home for resisted forward abdominal crunch - Charges Timed Code Treatment Minutes: 39 Total Treatment Time: 46 Procedures billed for this date of service:: hp, neuro, ex2 Assessment: Patient has had another recent fall yesterday hurting her L lateral thigh and R lateral ankle. She admits no actual fall to the ground/floor, but into chairs/couch. She seems to carlos stretches better with having moist heat prior and during therex. She is progressing with supine strengthening and core exercises. She has also worked on [employer] core exercises on her own. She is able to stand at rear of SUV to place rollator in vehicle and close the door in which grabbing handle and pulling down gives her support and stablizes her. Patient Education: Body/Joint mechanics, Home Exercise Program, Home Safety Patient demonstrates compliance with HEP?: Yes Short Term Goals Goal #1: pt independent with intial HEP Goal to be met by: 07/17/19 Progress towards Goal:: Progressing Goal #2: Improve dyn stand balance as noted by tinetti score of Goal to be met by: 07/17/19 Goal #3: Improve BLE strength 4/5 Goal to be met by: 07/17/19 Progress towards Goal:: Progressing Goal #4: Improve gait speed with rollator 0.7m/s Goal to be met by: 07/17/19 Longterm Goals Goal #1: pt able to perform normal daily activities without falls, w less pain B hip Goal to be met by: 07/31/19 Goal #2: Improve tinetti score consistent with mod risk of falls Goal to be met by: 07/31/19 Goal #3: Pt to ambulate household & community distances w/o falls Goal to be met by: 07/31/19 Goal #4: Improve gait speed > 0.8 meters/sec consistent with community ambulator Goal to be met by: 07/31/19 Plan Dates of Longterm Goals: 07/31/19 Expiration date of current Insurance Approval:: 07/31/19 PLAN: Patient to continue x 3 more sessions per order and advance activities to assist with bal and gait.
--- NOTE | 2019-07-20 09:58 | RS.OPPTDN ---
Subjective Date of Note: 07/20/19 Visit #: 6 Number of visits approved by Insurance: pending, requested 8 Date of Evaluation: 06/29/19 Payer Source: Medicaid Treatment Diagnosis: frequent falls, spinocerebellar ataxia type 3, gait abnormality Current Subjective/complaints:: Patient c/o being very tired today. States she has had a busy weekend and she has to work today after therapy and take her kids to karate following school. She asks if she may receive another order from her MD to continue therapy. We discussed progress, goals, and if we are able to get the first order approved through her insurance we could possibly proceed with that request. *Precautions: fall precautions Interventions - Exercise/Activities/Manual Therapy Exercises/Activities: Assisted stretching of bilateral hamstring, piriformis, figure 4, heel cords, and LTR x 4. Hooklying: Ball squeezes for Isometric hip add, resisted hip abd with red tband, lower trunk rotation with red tband, red tband for hip flexion for obliques, alternate LE lift with 2# ea LE, bridging 2x10 with 2# on abdomen, SLR (2x5), 4 point SLR x 5, isometric hip flexion, QS, SAQ 2#, DF with red tband 2 x 10, Double SAQ 2# ea holding ball at ankle x 10. Sitting EOB: 2# wand for bilateral shoulder flexion just about 100 degrees x 10 reps, red tband for bilateral shoulder abd x 10, red tband for scap retraction, blue tband for trunk extension x 10 reps, blue tband for R trunk sway x 5. Forward punches hitting FRAUD EXAMINER target various heights, then alternate punches cross body various heights x 8-10. Assisted pt to car using her rollator with encouragement to continue with shorter, cautious stride to maintain better bal. Total minutes of Exercise: 51 Manual Therapy: NA HOME EXERCISE PROGRAM: pt given written HEP including: hamstring stretch, piriformis stretch, isometric hip add, resisted hip abd. Bridging and chun tband tie to chair at home for resisted forward abdominal crunch - Charges Timed Code Treatment Minutes: 51 Total Treatment Time: 51 Procedures billed for this date of service:: ex2, neuro1 Assessment: Patient presented with obvious increase in fatigue with inconsistencies in stride length and generally more unstable gait not maintaining ambulation in straight path. Corrections were given verbally to shorten stride and improvements were noted significantly following stretching and therex as she demo more steady gait through shorter stride and straight pattern, more equal stepping. She continues to demo need for assisted stretching and bal activities especially with trunk extension and R sided sway as this appears to be primary area of weakness. Patient Education: Education of diagnosis, Body/Joint mechanics, Home Exercise Program, Home Safety, Education of Plan of Care Patient demonstrates compliance with HEP?: Yes Short Term Goals Goal #1: pt independent with intial HEP Goal to be met by: 07/17/19 Progress towards Goal:: Progressing Goal #2: Improve dyn stand balance as noted by tinetti score of Goal to be met by: 07/17/19 Comments:: Reassess next session Goal #3: Improve BLE strength 4/5 Goal to be met by: 07/17/19 Progress towards Goal:: Progressing Goal #4: Improve gait speed with rollator 0.7m/s Goal to be met by: 07/17/19 Hay Baler Goals Goal #1: pt able to perform normal daily activities without falls, w less pain B hip Goal to be met by: 07/31/19 Comments: Patient able to perform ADLs, but maintaining falls as well near daily Goal #2: Improve tinetti score consistent with mod risk of falls Goal to be met by: 07/31/19 Goal #3: Pt to ambulate household & community distances w/o falls Goal to be met by: 07/31/19 Goal #4: Improve gait speed > 0.8 meters/sec consistent with community ambulator Goal to be met by: 07/31/19 Plan Dates of [facility]dc Goals: 07/31/19 Expiration date of current Insurance Approval:: 07/31/19 PLAN: Patient to continue BIW for strengthening to core mm's and assisted stretching to assist with bal and gait.
--- NOTE | 2019-07-24 10:00 | RS.OPPTDN ---
Subjective Date of Note: 07/24/19 Visit #: 7 Number of visits approved by Insurance: Requested 8 Date of Evaluation: 06/29/19 Payer Source: Medicaid Treatment Diagnosis: frequent falls, spinocerebellar ataxia type 3, gait abnormality Current Subjective/complaints:: Patient says she had a fall yesterday landing on her L knee showing me scrape on the knee and bruising. She says however, with this fall, her R shoulder no longer is painful and is able to reach back behind her without limitation. She reports after awakening this morning, her L knee is not painful, "just looks bad." Reports today is actually a "good day" for her. *Precautions: fall precautions Interventions - Exercise/Activities/Manual Therapy Exercises/Activities: Assisted stretching of bilateral hamstring, piriformis, figure 4, heel cords, and LTR x 4. Hooklying: Ball squeezes for Isometric hip add, resisted hip abd with green tband, lower trunk rotation with red tband , progressed to green tband for hip flexion for obliques, alternate LE lift with 2# ea LE, bridging 2x10 with 2# on abdomen, SLR (2x5), 4 point SLR x 5, isometric hip flexion, QS, SAQ 2 1/2#, DF progressed to green tband 2 x 10, Double SAQ 2# ea holding ball at ankle x 10. Sitting EOB: 2# wand for bilateral shoulder flexion just about 100 degrees x 10 reps, green tband for scap retraction, blue tband for trunk extension x 10 reps, holding 1# wand in front of her 90* flexion for alternate LE lift x 5, then combo with 1# wand flexion and alternate LE flexion with frequent prompts for sequencing x 5. Sitting EOB: 2 1/2# cuff ea wrist holding ball bilaterally for forward, diagonal and below knee reach and cross body motions hitting SANDSTONE INSPECTOR REPAIRER target 2x8. Began stationary bike 5 mins forward, 2 retro. Reviewed HEP and safety techniques with transfers and gait. Total minutes of Exercise: 53 Manual Therapy: NA HOME EXERCISE PROGRAM: pt given written HEP including: hamstring stretch, piriformis stretch, isometric hip add, resisted hip abd. Bridging and chun tband tie to chair at home for resisted forward abdominal crunch - Charges Timed Code Treatment Minutes: 53 Total Treatment Time: 53 Procedures billed for this date of service:: ex2, neuro2 Assessment: Patient experienced another fall yesterday while walking with her taller, wider rollator in her home. She fell down onto her L knee and received yolette sized scrape showing scabbing (at the distal anterior knee) this morning. Small bruising just laterally. She regards no pain today, however painful at the time causing her difficulty getting up off of the floor. She no longer has pain or limitation with R shoulder IR as she has had since last week. She is now able to resume donning bra normally as pain is gone. She is wanting to continue therapy so that she may acquire more flexibility and become stronger if her MD and insurance allows. 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 She has 1 session remaining. We will assess next visit. Patient Education: Home Exercise Program, Home Safety, Education of Plan of Care Patient demonstrates compliance with HEP?: Yes Short Term Goals Goal #1: pt independent with intial HEP Goal to be met by: 07/17/19 Progress towards Goal:: Progressing Goal #2: Improve dyn stand balance as noted by tinetti score of Goal to be met by: 07/17/19 Comments:: Will reassess next session Goal #3: Improve BLE strength 4/5 Goal to be met by: 07/17/19 Progress towards Goal:: Progressing Goal #4: Improve gait speed with rollator 0.7m/s Goal to be met by: 07/17/19 Senior Care Goals Goal #1: pt able to perform normal daily activities without falls, w less pain B hip Goal to be met by: 07/31/19 Comments: She continues to have at least 2 falls per week Goal #2: Improve tinetti score consistent with mod risk of falls Goal to be met by: 07/31/19 Goal #3: Pt to ambulate household & community distances w/o falls Goal to be met by: 07/31/19 Goal #4: Improve gait speed > 0.8 meters/sec consistent with community ambulator Goal to be met by: 07/31/19 Plan Dates of Heel Attacher Wood Goals: 07/31/19 Expiration date of current Insurance Approval:: 07/31/19 PLAN: Patient to continue x 1 more session Saturday and we will reassess need to continue therapy with a new order at that point.
--- NOTE | 2019-07-29 09:04 | RS.OPPTDN ---
Subjective Date of Note: 07/28/19 Visit #: 8 Number of visits approved by Insurance: 8 Date of Evaluation: 06/29/19 Payer Source: Medicaid Treatment Diagnosis: frequent falls, spinocerebellar ataxia type 3, gait abnormality Current Subjective/complaints:: Patient says that she is weaning down off of her pain meds. Reports her bilateral hip pain is less with ambulation, which is why she is going to consult her MD about reducing it or quitting it completely. She says she has not had any more falls, but does show me several bruising from unknown reasons. She asks about continuing therapy because she wants to continue to gain strength and help her to be more steady while caring for her children. *Precautions: fall precautions Interventions - Exercise/Activities/Manual Therapy Exercises/Activities: Assisted stretching of bilateral hamstring, piriformis, figure 4, heel cords, and LTR x 4. Hooklying: Ball squeezes for Isometric hip add, resisted hip abd with green tband, lower trunk rotation with red tband , progressed to green tband for hip flexion for obliques, alternate LE lift with 2# ea LE, bridging 2x10 with 2# on abdomen, SLR (2x5), 4 point SLR x 5, ( given SLR counter/clockwise for home). isometric hip flexion, QS, SAQ 2 1/2#, DF progressed to green tband 2 x 10, Double SAQ 2# ea holding ball at ankle x 10. Sitting EOB: Rhythmic stabilization for ant/post/laterally x 3 ( isometrically), 2# wand for bilateral shoulder flexion just about 100 degrees x 10 reps, green tband for scap retraction, blue tband for trunk extension x 10 reps, holding 1# wand in front of her 90* flexion for alternate LE lift x 5, then combo with 1# wand flexion and alternate LE flexion with frequent prompts for sequencing x 5. Sitting EOB: 3# dumbell each hand for forward, diagonal and below knee reach and cross body motions punches hitting [employer] SHOE EXAMINER target 2x8. Continued stationary bike 5 mins forward, 2 retro. Began leg presses x 15#, 30 # 2x10 reps with intermittent cueing for not locking the knees and to control motion. Reviewed HEP and safety techniques with transfers and gait. Tinetti test performed, gait speed analyzed, and STG/LTG reassessed. Total minutes of Exercise: 53 Manual Therapy: NA HOME EXERCISE PROGRAM: pt given written HEP including: hamstring stretch, piriformis stretch, isometric hip add, resisted hip abd. Bridging and chun tband tie to chair at home for resisted forward abdominal crunch - Charges Timed Code Treatment Minutes: 53 Total Treatment Time: 53 Procedures billed for this date of service:: ex2, neuro2 Assessment: Patient has demo improved strength to bilateral hips and knees to 4/ 5 meeting goal and increased gait speed although still ataxic as expected. More so with increased (normal) speed. She is working on HEP as well as she is able and requires assistance from her children at times. Falls are not daily at this point, but she has had 3 since beginning therapy. Her bilateral hip pain is decreasing and wishes to discontinue pain meds as a result. She is eager to continue strengthening and needing assistance with stretching here as it is difficult for her to perform on her own. She would like to gain more independence with ADLs/caring for her children rather than them helping her so much. Step clearance has improved with gait, no longer presenting with foot drop at date of reassessment (today). Patient Education: Education of diagnosis, Home Exercise Program, Home Safety, Education of Plan of Care Patient demonstrates compliance with HEP?: Yes Short Term Goals Goal #1: pt independent with intial HEP Goal to be met by: 07/17/19 Progress towards Goal:: Met Goal #2: Improve dyn stand balance as noted by tinetti score of Goal to be met by: 07/17/19 Progress towards Goal:: Progressing Comments:: Increased to 11/28 Goal #3: Improve BLE strength 4/5 Goal to be met by: 07/17/19 Progress towards Goal:: Met Goal #4: Improve gait speed with rollator 0.7m/s Goal to be met by: 07/17/19 Progress towards Goal:: Met Vice President [employer] Goals Goal #1: pt able to perform normal daily activities without falls, w less pain B hip Goal to be met by: 07/31/19 Progress towards goal: Progressing Goal #2: Improve tinetti score consistent with mod risk of falls Goal to be met by: 07/31/19 Goal #3: Pt to ambulate household & community distances w/o falls Goal to be met by: 07/31/19 Goal #4: Improve gait speed > 0.8 meters/sec consistent with community ambulator Goal to be met by: 07/31/19 Progress towards goal: Met Comments: 1.01 meters/sec Plan Dates of [facility] Goals: 07/31/19 Expiration date of current Insurance Approval:: 07/31/19 PLAN: Feel patient would benefit from continuing with another short order from her MD to further provide assistance with stretching to improve flexibility for safer ambulation and strengthening to trunk mm's to aid in bal and pain.
--- NOTE | 2019-07-29 09:07 | RS.PTSUM ---
Progress Note/Summary Date of Note: 07/28/19 Date of Evaluation: 06/29/19 Number of Visits: 8 Number of visits approved by Insurance: 24 visits initially approved Reporting Period for this Progress Note: 06/29/19-07/28/19 Current Complaints/Gains: pt reports approx 3 falls since beginning PT, but this frequency has decreased from falling daily. pt feels her flexibility has improved and says she is a little more steady. States she has gained 4# since PT and believes she is gaining strength. Objective Measurements/Presentation: pt continues with expected ataxic gait regarding her diagnosis. Clears the R foot better and demonstrated increased gait speed from 0.58m/s to 1.01 m/sec. Hamstrings B have increased extensibility but remain the most limitied as piriformis and LTR stretching have greatly improved. Increased strength B hip knee to 4/5. Tinetti assessment has improved from 09/28 to 11/28. G Codes: n/a Source of G Code Score: n/a - Short Term Goals Goal #1: pt independent with intial HEP Goal to be met by: 07/17/19 (stretching is difficult on her own) Progress towards Goal:: Met Goal #2: Improve dyn stand balance as noted by tinetti score of Goal to be met by: 08/07/19 (11/28) Progress towards Goal:: Progressing Goal #3: Improve BLE strength 5 Goal to be met by: 07/17/19 Progress towards Goal:: Met Goal #4: Improve gait speed with rollator 0.7m/s Goal to be met by: 07/17/19 (1.01 meters/sec) Progress towards Goal:: Met - [facility] Goals Goal #1: pt able to perform normal daily activities without falls, w less pain B hip Goal to be met by: 08/14/19 (pain has improved) Progress towards goal: Progressing Goal #2: Improve tinetti score consistent with mod risk of falls Goal to be met by: 08/14/19 Progress towards goal: Progressing Goal #3: Pt to ambulate household & community distances w/o falls Goal to be met by: 08/14/19 (has had 3 falls, however freq of falls has decreased) Progress towards goal: Progressing Goal #4: Improve gait speed > 0.8 meters/sec consistent with community ambulator Goal to be met by: 07/31/19 (1.01) Progress towards goal: Met - Assessment Assessment of Improvement/Progress: pt has met STG 1, 3, 4 and LTG 4. pt has made progress with balance, decreased pain, as well as improved gait speed. pt continues with ataxic gait and decreased balance. Feel pt would continue to benefit from skilled PT for stretching, strengthening and balance activities. Summary: Patient has made progress towards goals., Patient demonstrates potential to gain increased function with therapy - Plan Plan: Will request continuation of therapy sessions. Comments: Have called and left message to request order to continue PT 2x a week for 2 weeks. Frequency: 2 X week Duration: 2 weeks Dates of [facility] Goals: 08/14/19 Expiration date of current Insurance Approval:: approved 24 visits.
--- NOTE | 2019-07-31 13:27 | RS.OPPTDN ---
Subjective Date of Note: 07/31/19 Visit #: 9 Number of visits approved by Insurance: 12 Date of Evaluation: 06/29/19 Payer Source: Medicaid Treatment Diagnosis: frequent falls, spinocerebellar ataxia type 3, gait abnormality Current Subjective/complaints:: Patient expresses being happy to have her PT continued. She c/o being tired today, but will leave here to go to work for 4 hours and is hoping therapy will improve her fatigue and ambulation today. *Precautions: fall precautions Interventions - Exercise/Activities/Manual Therapy Exercises/Activities: Assisted stretching of bilateral hamstring, piriformis, figure 4, heel cords, and LTR x 4. Hooklying: Ball squeezes for Isometric hip add, resisted hip abd with green tband, lower trunk rotation with green tband, progressed to green tband for hip flexion for obliques, bilateral LE raise with ball between knees and chun tband, alternate LE lift with 2# ea LE, bridging 2x10 with 3# on abdomen, SLR (2x5), 4 point SLR x 5. isometric hip flexion, QS, SAQ 3#, DF progressed to green tband 2 x 10, Double SAQ 3# ea holding ball at ankle x 10. Sitting EOB: Rhythmic stabilization for ant/post/ laterally x 3 (isometrically), 2# wand for bilateral shoulder flexion just about 100 degrees x 10 reps, green tband for scap retraction, blue tband for trunk extension x 10 reps, holding ball in front of her 90* flexion for alternate LE lift x 5 with 3# ea, then combo with 1# wand flexion and alternate LE flexion with frequent prompts for sequencing x 5, 3# ea LE. 3# dumbell each hand for forward, diagonal and below knee reach and cross body motions punches hitting [employer] TANKER DRIVER target 2x8. Continued stationary bike 5 mins forward, 2 retro. Leg presses x 30# 2x10 reps with intermittent cueing for not locking the knees and to control motion. Standing at railing: bilateral UE wall angels , wall push ups x 5. Reviewed HEP and safety techniques with transfers and gait. Tinetti test performed, gait speed analyzed, and STG/LTG reassessed. Total minutes of Exercise: 58 Manual Therapy: NA HOME EXERCISE PROGRAM: pt given written HEP including: hamstring stretch, piriformis stretch, isometric hip add, resisted hip abd. Bridging and chun tband tie to chair at home for resisted forward abdominal crunch - Charges Timed Code Treatment Minutes: 58 Total Treatment Time: 58 Procedures billed for this date of service:: ex2, neuro2 Assessment: Patient amb with more unsteadiness upon presentation with inconsistent steps, but after therex, she appears to have improved bal and steadiness with more consistent length in steps during swing phase. She is able to carlos progression of sitting and trunk/core activities with less fatigue as in 2 weeks ago. We will continue towards advancing bal and core activities as she carlos. to achieve reassessed goals. Patient Education: Education of Plan of Care Patient demonstrates compliance with HEP?: Yes Short Term Goals Goal #1: pt independent with intial HEP Goal to be met by: 07/17/19 (stretching is difficult on her own) Progress towards Goal:: Met Goal #2: Improve dyn stand balance as noted by tinetti score of Goal to be met by: 08/07/19 (11/28) Progress towards Goal:: Progressing Goal #3: Improve BLE strength 4/5 Goal to be met by: 07/17/19 Progress towards Goal:: Met Goal #4: Improve gait speed with rollator 0.7m/s Goal to be met by: 07/17/19 (1.01 meters/sec) Progress towards Goal:: Met Alf Goals Goal #1: pt able to perform normal daily activities without falls, w less pain B hip Goal to be met by: 08/14/19 (pain has improved) Progress towards goal: Progressing Goal #2: Improve tinetti score consistent with mod risk of falls Goal to be met by: 08/14/19 Progress towards goal: Progressing Goal #3: Pt to ambulate household & community distances w/o falls Goal to be met by: 08/14/19 (has had 3 falls, however freq of falls has decreased) Progress towards goal: Progressing Goal #4: Improve gait speed > 0.8 meters/sec consistent with community ambulator Goal to be met by: 07/31/19 (1.01) Progress towards goal: Met Plan Dates of [facility] Goals: 08/14/19 Expiration date of current Insurance Approval:: 08/14/19 PLAN: Continue x 3 more sessions.
== END 2019-08-01 23:59 ==
PROVIDERS: ATTEND Family Medicine
DX: R29.6 Repeated falls (principal); G11.9 Hereditary ataxia, unspecified; R26.9 Unspecified abnormalities of gait and mobility